=== PATIENT | female | born 1955 | race Hispanic/Latino ===

== ENCOUNTER → 2023-01-30 | Outpatient (CLI) | payer OTHER ==
[~2023-01-30] MED LIST: IOHEXOL-350 75 ML VIAL IV ONE
== END | disposition home or self-care (01) ==
LOC: RAH 10:08
PROVIDERS: ATTEND Surgery
DX: K43.2 Incisional hernia without obstruction or gangrene (principal)
CPT/HCPCS: 74177; Q9967

== ENCOUNTER 2023-03-07 06:26 | Day surgery (SDC) | payer OTHER ==
[2023-03-06 12:15] VITALS: BP 126/69; PULSE 66; RESP 18
[2023-03-07] VITALS (11 sets, daily range): BP systolic 99–126; BP diastolic 53–73; PULSE 62–87; RESP 13–18
[~2023-03-07] VITALS: Ht 160 cm; Wt 79.4 kg
[~2023-03-07 06:26] MED LIST changes: +ATOR20TA65 PO; +BUSP5TAB3 PO; +DULO60CA64 PO; +EMPA25TA PO; +IBUP-2784 PO; -IOHEXOL-350 75 ML VIAL IV ONE; +METF-446 PO; +OMEP20TA2 PO; +REPA0.5T6 PO; +TRAM50TA4 PO
[2023-03-07] MEDS ORDERED: PROPOFOL 10 MG/ML 20ML VIAL IV ONE (09:26)
== END 2023-03-07 11:20 | disposition home or self-care (01) ==
LOC: ENDO 06:26 → DAH 06:26 → ENDO 11:20
PROVIDERS: ATTEND Internal Medicine Gastroenterology
DX: R19.5 Other fecal abnormalities (principal); R12 Heartburn; D12.4 Benign neoplasm of descending colon; D12.3 Benign neoplasm of transverse colon; K57.30 Diverticulosis of large intestine without perforation or abscess without bleeding; K21.9 Gastro-esophageal reflux disease without esophagitis; K59.00 Constipation, unspecified; K31.89 Other diseases of stomach and duodenum; K62.89 Other specified diseases of anus and rectum; I10 Essential (primary) hypertension; E13.9 Other specified diabetes mellitus without complications; K43.9 Ventral hernia without obstruction or gangrene; F41.9 Anxiety disorder, unspecified; F32.A Depression, unspecified; Z79.899 Other long term (current) drug therapy; Z79.01 Long term (current) use of anticoagulants
CPT/HCPCS: 82948 ×2; 43239; 45385; J2704; A4620; A4215 ×2; A4223; A7002; A4222; A4221; A4663; A4216; J7030; A4606; J3490